=== PATIENT | male | born 1960 | race Caucasian/White ===

== ENCOUNTER 2021-07-25 15:15 | Outpatient (RCR) | payer BC, SELFPAY ==
[2021-07-25 15:18] VITALS: BP 144/78; PULSE 102; RESP 20; TEMP 36.7; O2SAT 99
[2021-07-25] MEDS: FAMOTIDINE 20 MG TABLET PO (15:22)
[2021-07-25] MEDS: diphenhydrAMINE HCl CAP 25 MG CAPSULE PO (15:22)
[2021-07-25] MEDS: ACETAMINOPHEN 325 MG TABLET 650 MG PO (15:22)
[2021-07-25] MEDS: BEBTELOVIMAB 175 MG/2 ML VIAL IV PUSH (15:40)
[2021-07-25 16:22] VITALS: BP 122/77; PULSE 93; RESP 18; O2SAT 98
== END 2021-07-25 16:00 ==
LOC: AMCINF 15:15
PROVIDERS: Referring Provider Family Medicine; Visit Provider Internal Medicine Hematology & Oncology
DX: U07.1 COVID-19 (principal)
CPT/HCPCS: A9270; M0222; Q0222